=== PATIENT | male | born 1985 | race Caucasian/White ===

== ENCOUNTER 2022-02-28 08:40 | Emergency (ER) | payer OTHER, SELFPAY ==
[2022-02-28] VITALS (18 sets, daily range): BP systolic 113–124; BP diastolic 62–99; PULSE 56–78; RESP 9–24; TEMP 37.1; O2SAT 96–100
--- NOTE | ~2022-02-28 | XR_ITS ---
EXAMINATION: XR chest 2V DATE: 02/28/2022 09:25 INDICATION: Chest tightness. TECHNIQUE: Frontal and lateral views of the chest were obtained. COMPARISON: None. FINDINGS: There is no pneumonia, pleural effusion, pneumothorax with a heart size is normal. IMPRESSION: 1. No acute cardiopulmonary disease. Reviewed, dictated and finalized at location A.
--- NOTE | 2022-02-28 08:43 | ECG_ITS ---
Measurements Intervals [place] Rate: 69 P: 33 MD: 172 QRS: 27 QRSD: 101 T: 37 QT: 372 QTc: 399 Interpretive Statements SINUS RHYTHM INCOMPLETE RIGHT BUNDLE BRANCH BLOCK BASELINE ARTIFACT- I, III, AVR, AVL, AVF BORDERLINE ECG NO PREVIOUS ECG AVAILABLE FOR COMPARISON Electronically Signed On 02-28-2022 9:36:56 CDT by Bipin Gilbert D.O.
--- NOTE | 2022-02-28 09:06 | ED.GENADULT ---
HPI - General Adult General Chief complaint: Chest Pain Stated complaint: torso tightness, high BP Time Seen by Provider: 02/28/22 08:44 History of Present Illness HPI narrative: 36-year-old male presented to the emergency department for evaluation of chest tightness with associated chest pain and back pain. Patient states his symptoms have been ongoing for the last few days but did worsen last night. Patient is a smoker. Patient denies any coughs colds or fevers. Patient denies any falls or injuries. Related Data Allergies Allergy/AdvReac Type Severity Reaction Status Date / Time tramadol AdvReac Seizure Verified 02/28/22 08:41 Review of Systems Review of Systems: CONSTITUTIONAL: Denies fever, chills, or sweats. EYES: Denies visual changes, redness, or discharge. ENT: Denies rhinorrhea, congestion, sore throat, or otalgia. CARDIOVASCULAR: Denies chest pain, palpitations, or edema. RESPIRATORY: See HPI GASTROINTESTINAL: Denies abdominal pain, nausea, vomiting, or diarrhea. GENITOURINARY: Denies dysuria or hematuria. SKIN: Denies rash or itching. MUSCULOSKELETAL: Denies back pain, joint pain, or myalgia. NEUROLOGIC: Denies headache, numbness, or weakness. Exam Narrative: APPEARANCE: Well appearing, no pain, no distress, well-nourished. HEAD: normocephalic, atraumatic. EYES: PERRLA/EOMI, conjunctivae clear. NOSE: Normal no drainage NECK: Supple. No adenopathy, no masses. RESPIRATORY: Airway patent, respirations nonlabored. Clear to auscultation bilaterally, no rales, rhonchi, wheezing. CARDIOVASCULAR: Regular rate and rhythm without murmurs rubs or gallops. Chest wall tenderness to palpation ABDOMINAL: Soft, nontender, nondistended, normal bowel sounds MUSCULOSKELETAL: Moves all extremities. Strength/ROM intact, No edema, No calf tenderness. NEURO: Alert. Cranial nerves II through XII intact. Grossly intact SKIN: Warm, dry. Normal Color Course Course Emergency Course: Chest x-ray shows no acute cardiopulmonary normality. Patient had negative serial troponins. D-dimer is also not elevated. Patient's labs are within normal limits. Patient was after the results of his work-up. All question concerns were addressed. Vital Signs Vital signs: Vital Signs Temperature 98.8 F 02/28/22 08:47 Pulse Rate 70 02/28/22 08:47 Respiratory Rate 18 02/28/22 08:47 Blood Pressure 123/89 02/28/22 08:47 Pulse Oximetry 99 02/28/22 08:47 Oxygen Delivery Room Air 02/28/22 08:47 Temperature 98.8 F 02/28/22 08:47 Pulse Rate 78 02/28/22 14:22 Respiratory Rate 18 02/28/22 14:22 Blood Pressure 118/62 02/28/22 14:22 Pulse Oximetry 99 02/28/22 14:22 Oxygen Delivery Room Air 02/28/22 08:47 Medical Decision Making Vital Signs Vital Signs: Vital Signs Temperature 98.8 F 02/28/22 08:47 Pulse Rate 70 02/28/22 08:47 Respiratory Rate 18 02/28/22 08:47 Blood Pressure 123/89 02/28/22 08:47 Pulse Oximetry 99 02/28/22 08:47 Oxygen Delivery Room Air 02/28/22 08:47 Temperature 98.8 F 02/28/22 08:47 Pulse Rate 78 02/28/22 14:22 Respiratory Rate 18 02/28/22 14:22 Blood Pressure 118/62 02/28/22 14:22 Pulse Oximetry 99 02/28/22 14:22 Oxygen Delivery Room Air 02/28/22 08:47 Lab Data Lab results reviewed: Yes I reviewed the patient's lab results. Result diagrams: 02/28/22 09:04 02/28/22 09:04 Labs: Lab Results 02/28/22 02/28/22 02/28/22 Range/Units 09:04 09:04 09:04 WBC 11.2 H (4.5-10.0) K/mm3 RBC 4.87 (4.6-6.20) M/mm3 Hgb 16.0 (14.0-18.0) g/dL Hct 45.5 (42.0-52.0) % MCV 93.4 (80-100) fl MCH 32.9 (26-34) pg MCHC 35.2 (32-36) g/dl RDW 12.9 (11.5-14.5) % Plt Count 243 (150-375) k/mm3 MPV 10.0 (7.4-10.4) fl Immature Gran % (Auto) 0.4 (0-0.5) % Neut % (Auto) 63.0 (45.5-73.1) % Lymph % (Auto) 26.9 (18.3-44.2) % [place] % (Auto) 5.3 (2.6-8.5) % Eos % (Au
[2022-02-28 09:09] LABS: Basophils Absolute Auto 0.1 K/mm3 (0.0-0.1); Basophils Percent Auto 0.5 % (0.2-1.2); Eosinophils Absolute Auto 0.4 K/mm3 (0-0.3); Eosinophils Percent Auto 3.9 % (0-4.4); Hematocrit 45.5 % (42.0-52.0); Immature Granulocyte Absolute 0.04 K/mm3 (0.00-0.031); Immature Granulocyte Percent A 0.4 % (0-0.5); Lymphocytes Absolute Auto 3.02 K/mm3 (0.9-3.2); Lymphocytes Percent Auto 26.9 % (18.3-44.2); Mean Corpuscular HGB Conc 35.2 g/dl (32-36); Mean Corpuscular Hemoglobin 32.9 pg (26-34); Mean Corpuscular Volume 93.4 fl (80-100); Monocytes Absolute Auto 0.6 K/mm3 (0.1-0.6); Monocytes Percent Auto 5.3 % (2.6-8.5); Neutrophils Absolute Auto 7.1 K/mm3 (1.3-6.7); Platelet Count Result 243 k/mm3 (150-375); Red Blood Count 4.87 M/mm3 (4.6-6.20); Red Cell Distribution Width 12.9 % (11.5-14.5); White Blood Count 11.2 K/mm3 (4.5-10.0)
[2022-02-28 09:19] LABS: Alanine Aminotransferase 24 U/L (6-50); Albumin Level 4.6 g/dL (3.5-5.1); Alkaline Phosphatase 49 U/L (38-126); Anion Gap 8 mmol/L (8-16); Aspartate Amino Transferase 30 U/L (17-59); Bilirubin,Total 0.4 mg/dL (0.2-1.3); Blood Urea Nitrogen 15 mg/dL (9-20); Carbon Dioxide 24 mmol/L (22-30); Chloride 108 mmol/L (98-107); Estimated CRCL calculation 112 ml/min; Estimated Glomerular Filt Rate > 60; Glucose 85 mg/dL (65-110); Lipase 110 U/L (23-300); Potassium 3.8 mmol/L (3.4-5.0); Sodium 140 mmol/L (137-145)
[2022-02-28 09:21] LABS: INR 0.9; Prothrombin Time 12.1 Seconds (11.1-14.7)
[2022-02-28 09:22] LABS: Partial Thromboplastin Time 26.9 SECONDS (22.3-36.8)
[2022-02-28 09:31] LABS: Troponin I < 0.012 ng/mL (0.000-0.034)
[2022-02-28] MEDS: ASPIRIN 81 MG CHEWABLE TABLET 324 MG PO (09:39)
[2022-02-28 09:52] LABS: D Dimer < 0.27 ug/mL (<0.48)
--- NOTE | 2022-02-28 10:12 | PC.NURSE ---
EDP Eric notified of patient being a moderate risk on Ray risk assessment. No interventions needed at this time.
[2022-02-28 12:59] LABS: Troponin I < 0.012 ng/mL (0.000-0.034)
[2022-02-28] MEDS: KETOROLAC 15 MG/ML VIAL (*BKC) IV PUSH (14:16)
== END 2022-02-28 14:23 | disposition home or self-care (01) ==
PROVIDERS: Emergency Provider Emergency Medicine
DX: R07.89 Other chest pain (principal)
CPT/HCPCS: 36415; 71046; 80053; 83690; 84484; 85025; 85380; 85610; 85730; 93005; 96374; 99284; A9270; J1885

== ENCOUNTER 2022-08-14 21:55 | Emergency (ER) | payer OTHER, SELFPAY ==
[2022-08-14 21:54] VITALS: BP 133/97; PULSE 72; RESP 18; TEMP 36.5; O2SAT 99
[2022-08-14 22:28] LABS: Basophils Absolute Auto 0.1 K/mm3 (0.0-0.1); Basophils Percent Auto 0.8 % (0.2-1.2); Eosinophils Absolute Auto 1.1 K/mm3 (0-0.3); Eosinophils Percent Auto 7.1 % (0-4.4); Hematocrit 46.9 % (42.0-52.0); Hemoglobin 16.8 g/dL (14.0-18.0); Immature Granulocyte Absolute 0.06 K/mm3 (0.00-0.031); Immature Granulocyte Percent A 0.4 % (0-0.5); Lymphocytes Percent Auto 30.4 % (18.3-44.2); Mean Corpuscular HGB Conc 35.8 g/dl (32-36); Mean Corpuscular Hemoglobin 33.5 pg (26-34); Mean Corpuscular Volume 93.4 fl (80-100); Mean Platelet Volume 10.1 fl (7.4-10.4); Monocytes Absolute Auto 0.7 K/mm3 (0.1-0.6); Monocytes Percent Auto 4.7 % (2.6-8.5); Neutrophils Absolute Auto 8.9 K/mm3 (1.3-6.7); Neutrophils Percent Auto 56.6 % (45.5-73.1); Platelet Count Result 306 k/mm3 (150-375); Red Blood Count 5.02 M/mm3 (4.6-6.20); Red Cell Distribution Width 12.4 % (11.5-14.5); White Blood Count 15.8 K/mm3 (4.5-10.0)
[2022-08-14 22:29] LABS: Appearance Urine Clear (Clear); Bilirubin Urine Negative (Negative); Blood Urine Negative (Negative); Color Urine Light Yellow (Yellow); Glucose Urine UA Negative (Negative); Ketones Urine Negative (Negative); Leukocyte Esterase Ur Negative LEU/UL (Negative); Nitrate Urine Negative (Negative); Protein Urine Negative (Negative); Urobilinogen Urine 0.2 mg/dL (<2.0); pH Urine 6.5 (5.0-9.0)
[2022-08-14 22:41] LABS: Ethanol 255 mg/dL (<10)
[2022-08-14 22:42] LABS: Alanine Aminotransferase 25 U/L (6-50); Albumin Level 4.9 g/dL (3.5-5.1); Alkaline Phosphatase 52 U/L (38-126); Anion Gap 9 mmol/L (8-16); Aspartate Amino Transferase 30 U/L (17-59); Bilirubin,Total 0.5 mg/dL (0.2-1.3); Blood Urea Nitrogen 14 mg/dL (9-20); Calcium 8.9 mg/dL (8.4-10.2); Carbon Dioxide 28 mmol/L (22-30); Chloride 104 mmol/L (98-107); Estimated CRCL calculation 94 ml/min; Estimated Glomerular Filt Rate > 60; Glucose 94 mg/dL (65-110); Potassium 3.3 mmol/L (3.4-5.0); Sodium 141 mmol/L (137-145)
[2022-08-14 23:04] LABS: Add Urine Microscopic? NO
[2022-08-15 00:07] LABS: Amphetamine Screen Urine Negative (Negative); Barbiturate Screen Urine Negative (Negative); Benzodiazepines Screen Urine Negative (Negative); Cannabinoid Screen Urine Negative (Negative); Cocaine Screen Urine Negative (Negative); Methadone Screen Urine Negative (Negative); Opiate Screen Urine Negative (Negative); Phencyclidine Screen Urine Negative (Negative)
[2022-08-15] MEDS: NICOTINE (*PBKC) 21 MG PATCH 1 PATCH TRANSDERM (00:15)
--- NOTE | 2022-08-15 00:35 | ED.GENADULT ---
HPI - General Adult General Chief complaint: Psychiatric Symptoms <Armani Gonzalez MD - Last Filed: 08/15/22 07:13> Stated complaint: SI/ETOH <Armani Gonzalez MD - Last Filed: 08/15/22 07:13> Time Seen by Provider: 08/14/22 22:17 <Armani Gonzalez MD - Last Filed: 08/15/22 07:13> History of Present Illness HPI narrative: Is a 36-year-old male presenting to ED with SI and alcohol intoxication. The patient said that he is sick of life. He says that everybody keeps giving him a hard time, unknown appreciates his contributions the household. Patient was suicidal earlier but says he has no plan. He does have access to a firearm. He denies homicidal ideation, visual or auditory hallucinations. He does admit to alcohol use tonight. He denies any illegal drug use. He does have you diagnosis depression was recently prescribed Wellbutrin but is not taking any doses yet. <Armani Gonzalez MD - Last Filed: 08/15/22 07:13> Related Data Allergies/adverse reactions: Allergies Allergy/AdvReac Type Severity Reaction Status Date / Time tramadol AdvReac Seizure Verified 02/28/22 08:41 <Armani Gonzalez MD - Last Filed: 08/15/22 07:13> [facility] Past Medical History Medical History: Medical History Depression <Armani Gonzalez MD - Last Filed: 08/15/22 07:13> Social History Social History: Social History Social History: Patient is a frequent drinker, smokes pack cigarettes a day and uses marijuana daily denies other illicit drug use Substance use type: does not use <Armani Gonzalez MD - Last Filed: 08/15/22 07:13> Exam Narrative: APPEARANCE: No apparent distress. Head: atraumatic. EYES: EOMI, NOSE: Atraumatic NECK: Trachea midline RESPIRATORY: No increased rate of breathing clear to auscultation CARDIOVASCULAR: RRR, ABDOMINAL: Non-distended MUSCULOSKELETAl: No obvious deformities NEURO: Alert. Moving 4/4 extremities SKIN:: Warm, dry. Normal color PSYCHIATRIC: Normal affect <Armani Gonzalez MD - Last Filed: 08/15/22 07:13> Course Reevaluation(s) Reevaluation #1: Patient care was signed out to me by Dr. Gonzalez. At time of signout blood alcohol recheck was pending. Patient's blood alcohol was below the legal limit and crisis counselor was called. Patient is medically cleared to be evaluated by the crisis counselor, for transport and for inpatient psychiatric placement as needed. 11:08 AM patient was evaluated by the crisis counselor and patient did sign a safety agreement. Patient was comfortable with the plan for discharge to home and close outpatient follow-up. <Darío Reyes MD - Last Filed: 08/15/22 11:10> Vital Signs Vital signs: Vital Signs Temperature 97.7 F 08/14/22 21:54 Pulse Rate 72 08/14/22 21:54 Respiratory Rate 18 08/14/22 21:54 Blood Pressure 133/97 H 08/14/22 21:54 Pulse Oximetry 99 08/14/22 21:54 Temperature 97.7 F 08/14/22 21:54 Pulse Rate 74 08/15/22 05:37 Respiratory Rate 18 08/15/22 05:37 Blood Pressure 121/90 08/15/22 05:37 Pulse Oximetry 99 08/15/22 05:37 <Armani Gonzalez MD - Last Filed: 08/15/22 07:13> Vital Signs Temperature 97.7 F 08/14/22 21:54 Pulse Rate 72 08/14/22 21:54 Respiratory Rate 18 08/14/22 21:54 Blood Pressure 133/97 H 08/14/22 21:54 Pulse Oximetry 99 08/14/22 21:54 Temperature 97.7 F 08/14/22 21:54 Pulse Rate 74 08/15/22 05:37 Respiratory Rate 18 08/15/22 05:37 Blood Pressure 121/90 08/15/22 05:37 Pulse Oximetry 99 08/15/22 05:37 <Darío Reyes MD - Last Filed: 08/15/22 11:10> Medical Decision Making MDM Narrative Medical decision making narrative: -Presentation: 36-year-old male presenting to ED intoxicated and suicidal. Patient has access to a firearm. Clear clear and present danger order has been placed
[2022-08-15 04:36] LABS: Ethanol 150 mg/dL (<10)
[2022-08-15 05:37] VITALS: BP 121/90; PULSE 74; RESP 18; O2SAT 99
--- NOTE | 2022-08-15 07:15 | PC.NURSE ---
Patient report received from ZURDO Sena. All questions answered and care of patient assumed. Patient resting quietly in bed with eyes closed. Respirations regular and non-labored. Appears to be asleep. Sitter at bedside. Awaiting BA redraw and Crisis assessment.
[2022-08-15 08:31] LABS: Ethanol 66 mg/dL (<10)
[2022-08-15 09:33] LABS: Influenza A QL RT-PCR Negative (Negative); Influenza B QL RT-PCR Negative (Negative); SARS-CoV-2 RNA PCR Negative
--- NOTE | 2022-08-15 09:45 | PC.NURSE ---
Crisis staff at bedside to assess pt.
--- NOTE | 2022-08-15 10:40 | PC.NURSE ---
Per Crisis schedule planning manager patient is cleared for discharge on safety contract. Dr. Reyes made aware.
[2022-08-15 11:08] VITALS: BP 129/95; PULSE 85; RESP 14; O2SAT 100
== END 2022-08-15 11:17 | disposition home or self-care (01) ==
PROVIDERS: Emergency Medicine; Emergency Provider Emergency Medicine
DX: F32.A Depression, unspecified (principal); F10.129 Alcohol abuse with intoxication, unspecified; Z20.822 Contact with and (suspected) exposure to COVID-19; F17.210 Nicotine dependence, cigarettes, uncomplicated; Y90.8 Blood alcohol level of 240 mg/100 ml or more
CPT/HCPCS: 36415; 80053; 80307; 81003; 84443; 85025; 87636; 99284; A9270